=== PATIENT | male | born 1985 | race Caucasian/White ===

== ENCOUNTER 2017-09-05 16:14 | Observation (INO) ==
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
[2017-09-05] MEDS ORDERED: Ondansetron ODT 4 MG TAB.RAPDIS SL ONE (18:11)
[2017-09-05] MEDS ORDERED: 0.9 % Sodium Chloride 1,000 ML IVC ONE ×2 (18:11→21:08)
--- NOTE | 2017-09-05 19:16 | Anesthesia Evaluation PreOp ---
Date of Encounter: 09/05/17 Time of Encounter: 19:14 - Past History Planned Operation: Exam Under Anesthesia Cardiac History: Denies any Significant Hx Pulmonary History: Smoker QUALITY ASSURANCE QA LAB TECHNICIAN History: Denies Any Significant HX Other Medical History: Denies Any Significant HX Anesthesia History: Past Anesthesia (None) Alcohol Use: none Drug use: none Medications and Allergies 3 Allergy/AdvReac Type Severity Reaction Status Date / Time No Known Allergies Allergy Verified 09/05/17 16:21 - Meds/Allergy Pre-op Review Medications Reviewed: Yes Allergies Reviewed: Yes Beta Blockers on Current Med List: No Anesthesia Exam O2 Sat Height 1.83 m Weight 68.039 kg O2 Sat by Pulse Oximetry 99 O2 Sat by Pulse Oximetry 97 Vital Signs Temp Pulse Resp BP Pulse Ox 97.9 F 86 14 127/81 97 09/05/17 16:21 09/05/17 16:21 09/05/17 16:21 09/05/17 16:21 09/05/17 16:21 Height: 6' Weight: 150# NPO (# of Hours): > 8 hrs Pain Scale: 0 - HEENT Pupil (Motor): Pupils equal, EOMI Mallampati: II Teeth: Normal Oral Opening: Greater than 3 - QUALITY ASSURANCE QA LAB TECHNICIAN LOC: Oriented QUALITY ASSURANCE QA LAB TECHNICIAN Motor: Normal RUE, Normal LUE, Normal RLE, Normal LLE, Normal Face QUALITY ASSURANCE QA LAB TECHNICIAN Sensory: Normal: RUE, LUE, RLE, LLE, Face - Cardiac Rhythm: Regular Murmur: None JVD: No Carotid Bruit: No - Pulmonary Breath Sounds: bilateral Clear Respiratory Effort: Symmetrical Anesthesia Assess/Plan ASA Score: 2 Modified [place] Scale for Level of Consciousness: Cooperative, oriented, and tranquil Anesthetic Plan: General Autologous Blood: Yes Monitoring Plan: Standard Monitors Recovery Plan: PACU
[2017-09-05] MEDS ORDERED: *HR* FentaNYL (PF) 100 MCG/2 ML VIAL ONE (19:26)
[2017-09-05] MEDS ORDERED: *HR* Propofol 200 MG/20 ML VIAL IVP ONE ×2 (19:29→20:08)
[2017-09-05] MEDS ORDERED: Albuterol 2.5 MG/3 ML NEBULIZER IH ONE ×2 (19:34→19:36)
[2017-09-05] MEDS ORDERED: *HR* HYDROmorphone (PF) 1 MG/ML SYRINGE IVP PRN (19:36)
[2017-09-05] MEDS ORDERED: Albuterol 2.5 MG/3 ML NEBULIZER ONE (19:36)
[2017-09-05] MEDS ORDERED: *HR* Labetalol 20 MG/4 ML SYRINGE IVP PRN (19:36)
[2017-09-05] MEDS ORDERED: *HR* Promethazine 25 MG/ML VIAL IVP PRN (19:36)
[2017-09-05] MEDS ORDERED: Ondansetron 4 MG/2 ML VIAL IVP ONE (19:36)
[2017-09-05 19:46] VITALS: BP 113/74
[2017-09-05] MEDS ORDERED: *HR* Midazolam HCl 2 MG/2 ML VIAL ONE (19:48)
--- NOTE | 2017-09-05 20:38 | Operative Note ---
Date of procedure: 09/05/17 Pre-op diagnosis: rectal foreign body Post-op diagnosis: same Procedure: therapeutic colonoscopy with retrieval of foreign body Implants: none Complications: none Anesthesia: GETA Surgeon: Kwasi Rogers Estimated blood loss (cc): 0 Specimen: foreign body Condition: stable Disposition: floor Procedure in Detail: Patient was brought into the operating room suite. Had mechanical dvt prophylaxis placed. underwent smooth induction of IV sedation. placed in the Left Lateral Decubitus position. A time out was held identifying correct patient , pathology, procedure, and physician. I started by give fleets enemas x 3; Due to the lack of return I decided to insert the scope. At approximately 10-12cm, I was able to visualize the foreign body. I inserted the snare instrument. i was able to get around it with the snare and gently remove the object in one piece. I reinserted the scope to make sure there were no other small fragments. i went to approximately 25cm, distal sigmoid colon, and I was no longer able to have good visualization due to the lack of bowel prep. I then concluded the procedure. The patient tolerated the procedure and was escorted to the holding area for recovery prior to going to the floor
--- NOTE | 2017-09-05 22:12 | Discharge Summary ---
Date of Encounter: 09/05/17 Time of Encounter: 22:10 - Discharge Diagnosis (1) Rectal foreign body Priority: Primary Status: Acute Comments: removed with colonoscopy without complication - Discharge Medications Allergies/Adverse Reactions: 3 Allergy/AdvReac Type Severity Reaction Status Date / Time No Known Allergies Allergy Verified 09/05/17 16:21 General Surgery Exam Initial Vital Signs Temp Pulse Resp BP Pulse Ox 97.9 F 86 14 127/81 97 09/05/17 16:21 09/05/17 16:21 09/05/17 16:21 09/05/17 16:21 09/05/17 16:21 - General physical appearance well developed, well nourished, no distress - Eyes normal ocular movement - ENT normocephalic - Neck no lymphadectomy - Respiratory normal expansion, normal respiratory effort - Cardiovascular Cardiovascular exam: Present: RRR - Abdomen Abdomen general surgery: Present: soft, non tender - Genitourinary Present: normal penis with no external lesions - Rectum Rectum: Present: normal sphincter tone, no hemorrhoids, no bleeding - Integumentary Integumentary general surgery: Present: warm and dry - Neurologic Present: CN 2-12 grossly intact - Musculoskeletal Present: other (FROM in UE/LE bilaterally) - Psychiatric Psychiatric general surgery: Present: A&Ox3 Date of admission: 09/05/17 19:18 Primary care physician: PCP NONE Discharging clinician: Kwasi Rogers Anticipated date of discharge: 09/05/17 - Patient Status Disposition: Home, Self-Care Condition: Good Functional capacity at discharge: independent ambulation Overall status at discharge: patient is back to baseline - Discharge Instructions Follow Up With: NONE,PCP [Primary Care Provider] - Additional Instructions: follow up as needed to my office - Diet and Activity Activity: increase activity as tolerated Diet: advance to your usual diet - Hospital Course Hospital course: Mr. Fountain is a 32 year old male - Time Spent with Patient Total time spent providing and/or coordinating discharge services: Greater than 30 minutes Procedures and tests throughout hospitalization: therapeutic colonoscopy with removal of foreign body - Impressions ITS Impressions Chest X-Ray 09/05/17 21:08 IMPRESSION: No acute cardiopulmonary process. No free-air is identified underneath the hemidiaphragm. D/ / 09/05/2017 21:54:43 Nmio Zepeda MD / [facility] Inter[facility]ting Provider: Nimo Zepeda MD
== END 2017-09-05 22:44 | disposition home or self-care (01) ==
LOC: EMEROO 16:14 → 3ANU 16:14
PROVIDERS: ADMIT Surgery; ATTEND Surgery
PROC: ENDOCFB (2017-09-05 20:00)